=== PATIENT | female | born 1940 | race Caucasian/White ===

== ENCOUNTER → 2016-10-16 | Outpatient (CLI) | payer MEDICARE, OTHER ==
[~2016-10-16] MED LIST: DAPA10TA PO; ESOM40CA PO; GABA100C8 PO; INSU100V5 SQ-INSULIN; IRBE300T16 PO; LEVO125T PO; LEVO137T2 PO; LINA5TAB PO; NEBI10TA3 PO; SIMV20TA3 PO
== END | disposition home or self-care (01) ==
LOC: CVU 13:40
PROVIDERS: ATTEND Family Medicine
DX: I73.9 Peripheral vascular disease, unspecified (principal); I10 Essential (primary) hypertension; E11.9 Type 2 diabetes mellitus without complications
CPT/HCPCS: 93922; 93925